=== PATIENT | male | born 1950 | race Caucasian/White ===

== ENCOUNTER 2022-12-08 07:53 | Observation (INO) ==
[2022-12-08 08:14] LABS: ABS Eosinophils 0.1 10^3/ul (0-0.6); ABS Monocytes 0.3 10^3/ul (0-0.8); ABS Neutrophils 4.3 10^3/ul (1.5-7.7); Eosinophil % 1.1 %; Hematocrit 42 % (42-52); Hemoglobin 14.1 g/dL (14.0-18.0); Lymphocyte % 17.3 %; Mean Corpuscular HGB Conc 34 g/dL (31-36); Mean Corpuscular Hemoglobin 31 pg (27-31); Mean Corpuscular Volume 93 fL (80-94); Mean Platelet Volume 8.2 fL (7.4-10.4); Platelet Count 233 10^3/uL (150-450); Red Blood Count 4.48 10^6 /uL (4.18-5.48); Red Cell Distribution Width 13 % (10-15); White Blood Count 5.7 10^3/uL (3.5-10.8)
[2022-12-08 08:27] LABS: INR 1.12 (0.88-1.18)
[2022-12-08 08:48] LABS: Albumin 4.5 g/dL (3.2-5.2); Albumin/Globulin Ratio 1.7 (1-3); Calcium 9.6 mg/dL (8.6-10.3); Creatinine, Serum 1.1 mg/dL (0.67-1.17); Globulin 2.6 g/dL (2-4); Potassium 3.9 mmol/L (3.5-5.0); Total Bilirubin 0.9 mg/dL (0.2-1.0); Total Protein 7.1 g/dL (6.4-8.9); eGFR CKD-EPI 70.9 (>60)
[2022-12-08 09:38] LABS: High Sensitivity Troponin 1 Hr < 3 pg/mL (<20)
[2022-12-08 09:47] LABS: Magnesium 1.7 mg/dL (1.9-2.7)
[2022-12-08] MEDS ORDERED: Magnesium Sulfate IV 3 GM in NS 0.9% 100 ml BAG 100 ML IVPB ONE (10:05)
[2022-12-08] MEDS ORDERED: Potassium Chlor 20 meq TAB.ER PO ONE (11:39)
[2022-12-08 11:59] LABS: HDL Cholesterol 42.2 mg/dL
[2022-12-08 16:59] VITALS: BP 125/84
[2022-12-08] MEDS ORDERED: Enoxaparin 40 MG/0.4 ML SYR SUBCUT SCH (21:00)
[2022-12-09] MEDS ORDERED: Cholecalciferol (VIT D3) 1,000 unit TAB PO SCH (09:00)
== END 2022-12-08 16:58 | disposition home or self-care (01) ==
LOC: EDHOLD 07:53 → ED 07:53 → EDHOLD 16:58
PROVIDERS: ADMIT Internal Medicine; ATTEND Internal Medicine